=== PATIENT | female | born 1970 | race Caucasian/White ===

== ENCOUNTER 2024-07-13 10:35 | Day surgery (SDC) | payer MEDICARE, MEDICAID, SELFPAY ==
[2024-07-10 11:38] VITALS: BMI 39.9
--- NOTE | 2024-07-10 11:55 | EKG_ITS ---
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
[2024-07-10 11:56] VITALS: BMI 39.9
[2024-07-10 12:25] LABS: Collection Type, Urine Clean Catch
[2024-07-10 12:34] LABS: Basophils # (Auto) 0.1 Thou/mm3 (0.0-0.2); Basophils % (Auto) 1 % (0-2.5); Eosinophils # (Auto) 0.1 Thou/mm3 (0.0-0.5); Eosinophils % (Auto) 2 % (0-10); Hematocrit 41.6 % (36.0-46.0); Hemoglobin 14.3 g/dL (12.0-16.0); Immature Granulocytes % (Auto) 0 % (0-0); Immature Granulocytes Auto 0.02 Thou/mm3 (0.00-0.00); Lymphocytes # (Auto) 2.4 Thou/mm3 (1.0-4.8); Lymphocytes % (Auto) 25 % (10-50); Mean Corpuscular HGB Conc 34.4 g/dl (31.0-37.0); Mean Corpuscular Hemoglobin 29.7 pg (25.0-35.0); Mean Corpuscular Volume 87 fL (80-100); Monocytes # (Auto) 0.5 Thou/mm3 (0.0-0.8); Monocytes % (Auto) 5 % (0-12); Neutrophils # (Auto) 6.5 Thou/mm3 (1.8-7.7); Neutrophils % (Auto) 68 % (37-80); Nucleated Red Blood Cell % 0 /100 WBC (0); Platelet Count 331 Thou/mm3 (140-440); RDW Standard Deviation 40.6 fL (36.4-46.3); Red Blood Count 4.81 Miln/mm3 (4.00-5.20); White Blood Count 9.6 Thou/mm3 (3.6-11.0)
[2024-07-10 13:00] LABS: HCG Qualitative,Urine Negative
[2024-07-10 13:03] LABS: Alanine Aminotransferase 53 U/L (10-49); Albumin, Serum 4.7 gm/dL (3.5-5.0); Albumin/Globulin Ratio 1.7 (1.2-2.2); Alkaline Phosphatase 102 U/L (46-116); Anion Gap 10 (7-16); Aspartate Amino Transferase 32 U/L (0-34); BUN/Creatinine Ratio 13 Ratio (12-20); Bilirubin,Total 0.6 mg/dL (0.3-1.2); Blood Urea Nitrogen 16 mg/dL (9-23); Calcium 9.7 mg/dL (8.3-10.6); Calcium (Corrected) 9.7 mg/dL (8.5-10.1); Carbon Dioxide 27.4 mMol/L (20.0-31.0); Chloride 103 mMol/L (98-107); Creatinine (Component) 1.2 mg/dL (0.6-1.3); Globulin 2.7 gm/dL (2.3-3.5); Glucose 116 mg/dL (74-106); Osmolality,Calculated 281 (275-295); Potassium 4.8 mMol/L (3.4-5.1); Sodium 140 mMol/L (136-145); Total Protein 7.4 gm/dL (5.7-8.2); eGFR 54 See Note
[2024-07-10 13:07] LABS: Bacteria,Urine Rare; Bilirubin,Urine Negative (Negative); Blood,Urine Negative (Negative); Calcium Oxalate Crystals,Urine 4+; Clarity,Urine Clear (Clear/Hazy); Color,Urine Yellow (Lt Yel-Yel); Glucose, Urine Negative (Negative); Ketones,Urine Negative (Negative); Leukocyte Esterase,Urine Positive (Negative); Nitrite,Urine Negative (Negative); PH,Urine 5.5 (5.0-7.0); Protein,Urine Negative (Neg - Trace); RBC,Urine 4 /hpf (0-3); Specific Gravity,Urine 1.028 (1.001-1.035); Squamous Epithelial Cell,Urine 8 /hpf (0-5); Urobilinogen,Urine Negative mg/dL (0.0-1.0); WBC,Urine 3 /hpf (0-5)
[2024-07-13] VITALS (7 sets, daily range): BP systolic 107–155; BP diastolic 63–93; PULSE 69–79; RESP 12–20; TEMP 36.1–37.2; O2SAT 95–99; BMI 39.3
--- NOTE | 2024-07-13 13:35 | SUR.PHASEI ---
pt received from OR in recovery bay 2. pt obtunded, breathing unlabored on oxymask 6l. oral airway in place. v/s stable. pt dressing peripad cdi. report received from Yanick DANIELS and Negrito LOGAN.
--- NOTE | 2024-07-13 14:01 | SUR.PHASEI ---
pt able to tolerate oral fluids without difficultly swallowing or nausea/vomiting.
--- NOTE | 2024-07-13 14:21 | ESOP_ITS ---
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 She received surgical site infection prophylaxis. Urinary bladder was straight catheterized. A gooseneck speculum was placed in the posterior vagina after a pelvic exam which is normal. Cervical os is narrow. Cervix is small. There is a small cystocele. Anterior lip of the cervix is held with single-tooth tenaculum. 1% epinephrine with lidocaine is injected circumferentially around the cervical os. 2 stay sutures at 12:00 and 6:00 with 2,0 Vicryl are placed, cervical cone is carved out with a 10 blade knife cone is open at 12:00. Additional small piece of the cervix is removed at 6:0clock. Endocervical curettage scanty is obtained. The cervical cone bed is cauterized with cautery at 60. Hemostasis is achieved. Stay sutures are cut. Monsel's is not available. Since hemostasis is good procedure is completed. Instrument and sponge count is correct and the needle count is correct. Patient sent to recovery in a stable condition. Specimen: other (cervical cold knife cone open at 12 0'clock, and additional piece of cervix from 6 o'clock and endocervical curettage) Estimated blood loss (ml): 10 Findings: small cervix, atrophic vaginal mucosa small cystocele , normal anteverted uterus , adnexa negative Complications: none Narrative: see procedure Surgical staff Operation Date: 07/13/24 12:45 Case Staff CONTINUOUS PICKLING LINE PICKLER HELPER: Yanick Andrade Diagnosis Problem List Completed Was Problem List Reviewed/Reconciled?: No
--- NOTE | 2024-07-13 14:30 | SUR.PHASEII ---
pt awake and alert, breathing unlabored on room air. v/s stable. pt dressing peripad cdi. pt able to ambulate to wheelchair with steady gait. d/c instructions given with mother V[place]a, all questions answered. pt d/c via wheelchair with all belongings.
== END 2024-07-13 14:30 | disposition home or self-care (01) ==
PROVIDERS: Anesthesiology; PCP Internal Medicine; Referring Provider Obstetrics & Gynecology; Visit Provider Obstetrics & Gynecology
PROC: 0UBC7ZZ Excision of Cervix, Via Natural or Artificial Opening (ICD-10-PCS; CPT 57520; principal; 2024-07-13 12:30)
DX: R87.810 Cervical high risk human papillomavirus (HPV) DNA test positive (principal); N97.0 Female infertility associated with anovulation; Z01.810 Encounter for preprocedural cardiovascular examination
CPT/HCPCS: 57520; 36415; 80053; 81001; 81025; 85025; 86850; 86900; 86901; 93005; A4217; A4649; J0690; J2704; J3010; J3490